=== PATIENT | male | born 1965 | race Caucasian/White ===

== ENCOUNTER → 2021-11-24 | Day surgery (SDC) | payer BC ==
[~2021-11-24] MED LIST: AMLODIPINE BESYL5 MG PO; LOSARTAN POTAS100 MG PO
== END | disposition home or self-care (01) ==
LOC: OR 06:56
DX: Z12.11 Encounter for screening for malignant neoplasm of colon (principal); I10 Essential (primary) hypertension; E78.5 Hyperlipidemia, unspecified; G89.29 Other chronic pain; M54.9 Dorsalgia, unspecified; K57.30 Diverticulosis of large intestine without perforation or abscess without bleeding; Z88.2 Allergy status to sulfonamides; Z20.822 Contact with and (suspected) exposure to COVID-19
CPT/HCPCS: J2704; J7120